=== PATIENT | female | born 1980 | race Two or more races ===

== ENCOUNTER 2017-01-03 19:07 | Inpatient (IN) | payer MEDICAID ==
[~2017-01-03] VITALS: Ht 157.5 cm; Wt 97.3 kg
[2017-01-03] MEDS ORDERED: ONDANSETRON HCL 4 MG/2 ML VIAL IV ONE (19:45)
[2017-01-03] MEDS ORDERED: SODIUM CHLORIDE 0.9% 1,000 ML IV ONE (19:45)
[2017-01-03] MEDS ORDERED: HYDROmorphone HCL 2 MG/ML VL IV ONE (19:45)
[2017-01-03 20:08] LABS: Basophils # (auto) 0 uL; Basophils % (auto) 0.2 % (0.0-2.0); DEFINITIVE VIEW TRANSMISSION; Eosinophils # (auto) 0 uL; Mean Corpuscular Hemoglobin 26.3 pg (28.0-32.0); Platelet Count (auto) 312 10^3/uL (140-450)
[2017-01-03 20:11] LABS: Eosinophils % (auto) 0.4 % (0.0-7.0); Hematocrit 34.5 % (36.0-46.0); Hemoglobin 11.3 g/dL (12.2-16.2); Lymphocytes # (auto) 2.1 uL; Lymphocytes % (auto) 18.2 % (10.0-50.0); Mean Corpuscular Hgb Conc. 32.9 g/dL (32.0-36.0); Mean Corpuscular Volume 79.9 fL (80.0-100.0); Mean Platelet Volume 9.3 fL (7.4-10.4); Monocytes # (auto) 0.5 uL; Monocytes % (auto) 4.7 % (0.0-12.0); Neutrophils # (auto) 8.8 uL; Neutrophils % (auto) 76.5 % (37.0-80.0); Red Cell Distribution Width 14.6 % (11.6-16.0); White Blood Cell 11.4 10^3/uL (4.4-10.8)
[2017-01-03 20:30] LABS: INR 0.99 (0.9-1.15); Partial Thromboplastin Time 26.3 sec (22.64-33.71); Prothrombin Time 10.8 sec (9.37-12.3)
[2017-01-03 20:31] LABS: Albumin 4.1 g/dL (3.4-5.0); BUN/Creatinine Ratio 21.3; Bilirubin, Total 0.5 mg/dL (0.2-1.0); Potassium 3.8 mmol/L (3.5-5.1); Total Protein 7.7 g/dL (6.4-8.2)
[2017-01-04] MEDS ORDERED: HYDROmorphone HCL 2 MG/ML VL IV ONE (00:15)
[2017-01-04] MEDS ORDERED: ONDANSETRON HCL 4 MG/2 ML VIAL IV ONE ×2 (00:15→10:30)
[2017-01-04] MEDS ORDERED: MORPHINE SULF INJ 2 MG/ML SYRINGE 1ML IV PRN ×2 (00:15→10:30)
[2017-01-04] MEDS ORDERED: cefTRIAXone 1GM/50ML D5W 50 ML IV ONE (00:15)
[2017-01-04] MEDS ORDERED: ONDANSETRON HCL 4 MG/2 ML VIAL IV PRN (00:15)
[2017-01-04 00:20] LABS: Urine Bilirubin Negative (Negative); Urine Blood Negative /uL (Negative); Urine Color Yellow (Yellow); Urine Glucose Normal (Normal); Urine Nitrite Negative (Negative); Urine RBC 1 /hpf (0 - 4); Urine Squamous Epithelial Cell FEW /hpf (<5); Urine Urobilinogen Normal (Negative)
[2017-01-04 00:21] LABS: Urine Ketone 1+ (Negative)
[2017-01-04 00:33] VITALS: BP 125/84
[2017-01-04] MEDS ORDERED: NAPR220C PO (01:59)
[2017-01-04] MEDS ORDERED: RANI300T3 PO (02:01)
[2017-01-04 04:50] VITALS: BP 120/70
[2017-01-04] MEDS: metroNIDAZOLE 500MG/100ML 100 ML IV SCH ×3 (05:11→22:12)
[2017-01-04 08:00] VITALS: BP 119/70
[2017-01-04 09:04] VITALS: BP 119/70
[2017-01-04] MEDS: cefTRIAXone 1GM/50ML D5W 50 ML IV SCH (09:08)
[2017-01-04] MEDS: PANTOPRAZOLE SODIUM 40 MG/10 ML VIAL IV SCH (09:08)
[2017-01-04] MEDS: SODIUM CHLORIDE 0.9% 1,000 ML IV SCH ×3 (09:58→22:27)
[2017-01-04] MEDS ORDERED: POVIDONE IODINE 10 % TOPICAL OINT 30GM TOP ONE (10:16)
[2017-01-04] MEDS ORDERED: ePHEDrine SULFATE 50 MG/ML AMP IV PRN (10:30)
[2017-01-04] MEDS ORDERED: HYDROmorphone HCL 2 MG/ML VL IV PRN (10:30)
[2017-01-04] MEDS ORDERED: KETOROLAC TROMETH 30 MG/ML 1ML VIAL IV ONE (10:30)
[2017-01-04] MEDS ORDERED: MIDAZOLAM HCL 1MG/1ML-2 ML VIAL IV PRN (10:30)
[2017-01-04] MEDS ORDERED: LABETALOL HCL 5 MG/ML 4ML SYRINGE IV PRN (10:30)
[2017-01-04] MEDS ORDERED: hydrALAZINE HCL 20 MG/ML VL IV PRN (10:30)
[2017-01-04] MEDS ORDERED: fentaNYL CITRATE 100 MCG/2 ML VL ONE (10:38)
[2017-01-04] MEDS ORDERED: MIDAZOLAM HCL 1MG/1ML-2 ML VIAL ONE (10:39)
[2017-01-04] MEDS ORDERED: DEXAMETHASONE SOD PHOS 10MG/1ML VIAL INJ ONE (10:39)
[2017-01-04] MEDS ORDERED: PROPOFOL 10 MG/ML 20 ML IV ONE (10:39)
[2017-01-04] MEDS ORDERED: MEPERIDINE HCL (50 MG/ML) 1 ML VIAL ONE (10:39)
[2017-01-04] MEDS ORDERED: ceFAZolin 1GM/50ML D5W 50 ML IV ONE (10:57)
[2017-01-04] MEDS ORDERED: SUCCINYLCHOLINE CHLORIDE 20 MG/ML 10ML VIAL IV ONE (11:28)
[2017-01-04] MEDS ORDERED: GLYCOPYRROLATE 0.2 MG/ML 1ML VIAL ONE (12:08)
[2017-01-04] MEDS ORDERED: NEOSTIGMINE 1 MG/ML INJ (10mg/10ML VIAL) ONE (12:08)
[2017-01-04] MEDS ORDERED: KETOROLAC TROMETH 30 MG/ML 1ML VIAL ONE (12:11)
[2017-01-04] MEDS ORDERED: PHENYLEPHRINE HCL 10 MG/ML VL ONE (12:11)
[2017-01-04 16:22] VITALS: BP 113/62
[2017-01-04 22:00] VITALS: BP 119/74
[2017-01-05 05:00] VITALS: BP 116/64
[2017-01-05] MEDS: metroNIDAZOLE 500MG/100ML 100 ML IV SCH ×3 (05:24→21:32)
[2017-01-05 06:34] LABS: Basophils # (auto) 0 uL; DEFINITIVE VIEW TRANSMISSION; Eosinophils # (auto) 0 uL; Hematocrit 30.2 % (36.0-46.0); Hemoglobin 9.9 g/dL (12.2-16.2); Lymphocytes # (auto) 1.4 uL; Lymphocytes % (auto) 16.1 % (10.0-50.0); Mean Corpuscular Hemoglobin 26.5 pg (28.0-32.0); Mean Corpuscular Hgb Conc. 32.8 g/dL (32.0-36.0); Mean Corpuscular Volume 80.7 fL (80.0-100.0); Mean Platelet Volume 9.8 fL (7.4-10.4); Monocytes # (auto) 0.6 uL; Monocytes % (auto) 6.8 % (0.0-12.0); Neutrophils # (auto) 6.6 uL; Neutrophils % (auto) 77.1 % (37.0-80.0); Platelet Count (auto) 268 10^3/uL (140-450); Red Cell Distribution Width 15.2 % (11.6-16.0); White Blood Cell 8.6 10^3/uL (4.4-10.8)
[2017-01-05 07:28] LABS: Albumin 3.2 g/dL (3.4-5.0); BUN/Creatinine Ratio 16.4; Bilirubin, Total 0.6 mg/dL (0.2-1.0); Calcium 8.2 mg/dL (8.5-10.1); Potassium 3.6 mmol/L (3.5-5.1); Total Protein 6.6 g/dL (6.4-8.2)
[2017-01-05 09:00] VITALS: BP 104/67
[2017-01-05] MEDS: PANTOPRAZOLE SODIUM 40 MG/10 ML VIAL IV SCH (11:54)
[2017-01-05] MEDS: cefTRIAXone 1GM/50ML D5W 50 ML IV SCH (11:54)
[2017-01-05] MEDS: SODIUM CHLORIDE 0.9% 1,000 ML IV SCH ×2 (11:58→18:19)
[2017-01-05 13:00] VITALS: BP 107/59
[2017-01-05 16:55] VITALS: BP 110/57
[2017-01-05 22:00] VITALS: BP 93/46
[2017-01-06] MEDS: SODIUM CHLORIDE 0.9% 1,000 ML IV SCH ×2 (01:56→09:49)
[2017-01-06 05:01] VITALS: BP 106/50
[2017-01-06] MEDS: metroNIDAZOLE 500MG/100ML 100 ML IV SCH (05:31)
[2017-01-06 08:00] VITALS: BP 113/63
[2017-01-06 09:00] VITALS: BP 113/63
[2017-01-06] MEDS: cefTRIAXone 1GM/50ML D5W 50 ML IV SCH (09:50)
[2017-01-06] MEDS: PANTOPRAZOLE SODIUM 40 MG/10 ML VIAL IV SCH (09:50)
[2017-01-06 11:24] VITALS: BP 113/63
== END 2017-01-06 12:30 | disposition home or self-care (01) | DRG 263 ==
LOC: ER 19:12 → OVERFLOW 19:13 → WEST WING 01-04 00:28
PROVIDERS: ADMIT Internal Medicine; ATTEND Internal Medicine
PROC: 0FT44ZZ Resection of Gallbladder, Percutaneous Endoscopic Approach (ICD-10-PCS; principal; 2017-01-04 11:34)
DX: K80.00 Calculus of gallbladder with acute cholecystitis without obstruction (principal); E44.1 Mild protein-calorie malnutrition; K76.0 Fatty (change of) liver, not elsewhere classified; E66.9 Obesity, unspecified; D63.8 Anemia in other chronic diseases classified elsewhere; Z68.39 Body mass index [BMI] 39.0-39.9, adult; E61.1 Iron deficiency; Z83.3 Family history of diabetes mellitus; Z71.89 Other specified counseling
CPT/HCPCS: 36415; 74176; 76705; 80053; 81001; 81025; 82150; 82247; 83690; 85025; 85610; 85730; 86850; 86900; 86901; 87040; 87081; 96361; 96374; 96375; 96376; C9113; J0330; J0690; J0696; J1100; J1885; J2250; J2405; J2704; J3490

== ENCOUNTER 2019-01-21 20:02 | Emergency (ER) | payer MEDICAID ==
[~2019-01-21] VITALS: Ht 157.5 cm; Wt 79.8 kg
[~2019-01-21 20:02] MED LIST: NAPR220C PO; RANI300T3 PO
[2019-01-21 20:14] VITALS: BP 117/79
[2019-01-21] MEDS ORDERED: DexAMETHasone SOD PHOS 10MG/1ML VIAL INJ IM ONE (22:45)
[2019-01-21] MEDS ORDERED: HYDROcodone-ACET 5/325MG TAB PO ONE (22:45)
== END 2019-01-21 23:13 | disposition home or self-care (01) ==
LOC: ER 20:04
DX: H66.93 Otitis media, unspecified, bilateral (principal); G44.209 Tension-type headache, unspecified, not intractable
CPT/HCPCS: 96372; 99283; J1100

== ENCOUNTER 2022-11-06 15:01 | Emergency (ER) | payer SELFPAY ==
[~2022-11-06] VITALS: Ht 157.5 cm; Wt 91.1 kg
[2022-11-06 16:12] VITALS: BP 134/89
[2022-11-06] MEDS ORDERED: IBUP800T27 PO (16:14)
[2022-11-06] MEDS ORDERED: IBUPROFEN 800 MG TAB PO ONE (16:15)
== END 2022-11-06 16:34 | disposition home or self-care (01) ==
LOC: ER 15:01
DX: S93.401A Sprain of unspecified ligament of right ankle, initial encounter (principal); Z79.899 Other long term (current) drug therapy; X50.1XXA Overexertion from prolonged static or awkward postures, initial encounter; Y93.89 Activity, other specified; Y92.89 Other specified places as the place of occurrence of the external cause; Y99.8 Other external cause status
CPT/HCPCS: 73610